=== PATIENT | female | born 1995 | race Caucasian/White ===

== ENCOUNTER 2017-01-12 12:48 | Emergency (ER) | payer BC, OTHER ==
[~2017-01-12] VITALS: Ht 165.1 cm; Wt 59.0 kg
[~2017-01-12 12:48] MED LIST: AMOX500T PO; TUSSSUS PO; Z.0.NO CURRENT MEDS
[2017-01-12 12:52] VITALS: BP 122/89; PULSE 81; RESP 16; TEMP 97.7; O2SAT 99
[2017-01-12 13:07] LABS: BLOOD, URINE NEG (NEG); GLUCOSE,URINE NEG (NEG); KETONE, URINE NEG (NEG); NITRITE,URINE NEG (NEG)
[2017-01-12 13:08] LABS: METHOD OF COLLECTION CLEAN CATCH; URINE COLOR YELLOW (YELLW/STRAW)
[2017-01-12 13:13] LABS: BACTERIA, URINE FEW /hpf; COMMENT (UR) CULTURE INDICATED; COMMENT2 (UR) MUCOUS PRESENT; CULTURE IF INDICATED CULTURE INDICATED
[2017-01-12 13:14] LABS: TRANSITIONAL EPI CELLS, URINE 0-5 /hpf
[2017-01-12] MEDS ORDERED: BIRTH CONTROL (13:32)
[2017-01-12] MEDS ORDERED: CEPH-460 PO (13:33)
--- NOTE | 2017-01-12 13:33 | PD ---
HPI Chief Complaint: Complaint Time Seen by Provider: 13:28 Travel History International Travel<30 days: No Contact w/Intl Traveler<30days: No Traveled to known affect area: No History of Present Illness HPI 21-year-old female presents to the emergency room for evaluation of dysuria, urgency, and frequency for the past week. Patient has been taking over-the- counter Azo with significant relief in symptoms. She denies fever, chills, nausea, vomiting, or back pain. Denies any vaginal discharge. No concern for STDs. PFSH Past Medical History ?: Not LMP: 3 WEEKS Past Surgical History Tonsillectomy: Yes Social History Alcohol Use: No Tobacco Use: No Substance Use: No Allergies-Medications (Allergen,Severity, Reaction): Coded Allergies: No Known Allergies (Verified , 01/12/17) Reported Meds & Prescriptions Reported Meds & Active Scripts Active Tussionex (Chlorphenir/Hydrocodone Polistirex) Liqcr 5 Ml PO BIDPRN Amoxil (Amoxicillin) 500 Mg Cap 1 Tab PO TID 10 Days Reported No Current Meds (Miscellaneous Medication) Misc Review of Systems Except as stated in HPI: all other systems reviewed are Neg Physical Exam Narrative GENERAL: Well-nourished, well-developed female in no acute distress. Afebrile. Ambulatory. SKIN: Focused skin assessment warm/dry. HEAD: Normocephalic. EYES: No scleral icterus. No injection or drainage. NECK: Supple, trachea midline. No JVD or lymphadenopathy. CARDIOVASCULAR: Regular rate and rhythm without murmurs, gallops, or rubs. RESPIRATORY: Breath sounds equal bilaterally. No accessory muscle use. GASTROINTESTINAL: Abdomen soft, non-tender, nondistended. BACK: Nontender without obvious deformity. No CVA tenderness. Data Data Last Documented VS Vital Signs Date Time Temp Pulse Resp B/P Pulse Ox O2 Delivery O2 Flow Rate FiO2 01/12/17 12:52 97.7 81 16 122/89 99 Orders Urinalysis - C+S If Indicated (01/12/17 12:55) Ed Urine Pregnancytest Poc (01/12/17 12:55) Urine Culture (01/12/17 12:55) Labs Laboratory Tests Test 01/12/17 12:55 Urine Collection Type CLEAN CATCH Urine Color YELLOW Urine Turbidity SLIGHT Urine pH 7.0 Urine Specific [place] 1.019 Urine Protein NEG mg/dL Urine Glucose (UA) NEG mg/dL Urine Ketones NEG mg/dL Urine Occult Blood NEG Urine Nitrite NEG Urine Bilirubin NEG Urine Leukocyte Esterase SMALL Urine WBC 20-24 /hpf Urine WBC Clumps FEW Urine Squamous Epithelial 6-8 /hpf Cells Urine Transitional Epithelial 0-5 /hpf Cells Urine Amorphous Sediment FEW Urine Bacteria FEW /hpf Microscopic Urinalysis Comment CULTURE INDICATED Urine Collection Time 1255 MDM Medical Decision Making Medical Screen Exam Complete: Yes Emergency Medical Condition: Yes Medical Record Reviewed: Yes Differential Diagnosis UTI , STD, chemical dysuria Narrative Course 21-year-old female presents to the emergency room for evaluation of dysuria, urgency, and frequency for the past week. Patient denies systemic signs of infection. No concern for STDs. She is afebrile and well-appearing in the emergency room. No CVA tenderness. UA shows evidence of infection. Patient will be treated empirically with Keflex. Told to follow up with primary care physician or return for worsening symptoms. She understands and agrees to plan. Diagnosis Primary Impression: Urinary tract infection Qualified Code: N30.00 - Acute cystitis without hematuria Referrals: Primary Care Physician Patient Instructions: General Instructions, Urinary Tract Infection in Women ( ED) Additional Instructions: Rest and drink plenty of fluids. Keflex as directed, until gone. Follow-up with a primary care physician. Return to the emergency room for worsening symptoms. Disposition: 01 DISCHARGE HOME Condition: Stable Tiffany Rojo Jan 12, 2017 13:33
== END 2017-01-12 13:46 | disposition home or self-care (01) ==
LOC: PHED 12:48 → PHEFT 13:46
DX: N30.00 Acute cystitis without hematuria (principal); B95.7 Other staphylococcus as the cause of diseases classified elsewhere
CPT/HCPCS: 81001; 84703; 87086; 99283